=== PATIENT | male | born 1950 | race Caucasian/White ===

== ENCOUNTER 2017-10-07 13:35 | Inpatient (IN) | payer MEDICARE, OTHER ==
[2017-10-07] MEDS ORDERED: MVI, Adult with Vitamin K 10 ML, Chromium/Copper/Mang/Selen/Zn 1 ML in Lactated Ringers... IV ONE ×3 (15:30)
[2017-10-07] MEDS ORDERED: Naloxone 0.4 MG/ML SDV IV PRN (15:39)
[2017-10-07] MEDS ORDERED: HYDROmorphone/Normal Saline 15 MG/30 ML PCA IV PRN (15:39)
[2017-10-07] MEDS: Pantoprazole 40 MG Vial IVPUSH SCH (17:17)
[2017-10-07] MEDS: Dextrose 5%-Lactated Ringers 1,000 ML IV SCH (18:38)
[2017-10-08] MEDS: Pantoprazole 40 MG Vial IVPUSH SCH ×2 (03:16→16:14)
[2017-10-08] MEDS: Dextrose 5%-Lactated Ringers 1,000 ML IV SCH ×3 (04:53→22:15)
--- NOTE | 2017-10-08 07:32 | PCM.PN ---
- General Info Date of Service: 10/08/17 Admission Dx/Problem (Free Text): Direct admit for abdominal pain from prior gastric band. Subjective Update: Patient was admitted last night for abdominal pain. His pain is currently controlled and he is up and ambulating. Patient wants the band removed however does is hesitant for conversation to a LRNYGB. Functional Status: Reports: Pain Controlled - Review of Systems General: Reports: No Symptoms HEENT: Reports: No Symptoms Pulmonary: Reports: No Symptoms Cardiovascular: Reports: No Symptoms Gastrointestinal: Reports: No Symptoms Genitourinary: Reports: No Symptoms Musculoskeletal: Reports: No Symptoms Skin: Reports: No Symptoms Neurological: Reports: No Symptoms Psychiatric: Reports: No Symptoms (ROS is negative for any pertient positives or negatives. ) - Patient Data Vitals - Most Recent: Last Vital Signs Temp 96.2 F 10/08/17 03:14 Pulse 57 L 10/08/17 03:14 Resp 18 10/08/17 03:14 BP 116/52 L 10/08/17 03:14 Pulse Ox 98 10/08/17 03:14 Weight - Most Recent: 311 lb I&O - Last 24 Hours: Intake & Output 10/07/17 10/08/17 10/08/17 22:59 06:59 14:59 Intake Total 1055 1046 Output Total 125 Balance 1055 921 Lab Results Last 24 Hours: Laboratory Results - last 24 hr 10/08/17 10/08/17 10/08/17 Range/Units 03:45 03:45 03:45 WBC 3.3 L (4.5-11.0) K/uL RBC 4.18 L (4.30-5.90) M/uL Hgb 12.7 (12.0-15.0) g/dL Hct 37.8 L (40.0-54.0) % MCV 90 (80-98) fL MCH 30 (27-31) pg MCHC 34 (32-36) % Plt Count 110 L (150-400) K/uL Sodium 140 (140-148) mmol/L Potassium 3.9 (3.6-5.2) mmol/L Chloride 106 (100-108) mmol/L Carbon Dioxide 30 (21-32) mmol/L Anion Gap 4.5 L (5.0-14.0) mmol/L BUN 10 (7-18) mg/dL Creatinine 1.1 (0.8-1.3) mg/dL Est Cr Clr Drug Dosing 73.48 mL/min Estimated GFR (MDRD) > 60 (>60) Glucose 102 (74-106) mg/dL Calcium 7.8 L (8.5-10.1) mg/dL Phosphorus 3.9 (2.5-4.9) mg/dL Magnesium 1.9 (1.8-2.4) mg/dL Ferritin 201 (8-388) ng/ml Total Bilirubin 1.3 H (0.2-1.0) mg/dL AST 24 (15-37) U/L ALT 36 (12-78) U/L Alkaline Phosphatase 56 (46-116) U/L NT-Pro-B Natriuret Pep 63 (5-125) pg/mL Total Protein 5.8 L (6.4-8.2) g/dL Albumin 3.1 L (3.4-5.0) g/dL Globulin 2.7 (2.3-3.5) g/dL Albumin/Globulin Ratio 1.2 (1.2-2.2) Vitamin B12 422 (193-986) pg/ml Folate 9.4 (8.6-58.9) ng/ml Blood Type O POSITIVE Gel Antibody Screen Negative Med Orders - Current: Current Medications Glycopyrrolate (Glycopyrrolate) 0.4 mg IVPUSH ONCALL ONE Stop: 10/08/17 08:01 Hydromorphone HCl (Dilaudid Senior Merchandiser 15 Mg In Ns 30 Ml) 0 mg IV ASDIRECTED PRN; Protocol PRN 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 Last Admin: 10/07/17 17:14 Dose: 15 mg Dextrose/Lactated Ringer's (Dextrose 5%-Lactated Ringers) 1,000 mls @ 100 mls/ hr IV ASDIRECTED [facility] Last Admin: 10/08/17 04:53 Dose: 100 mls/hr Naloxone HCl (Narcan) 0.1 mg IV ASDIRECTED PRN PRN Reason: decreased respiratory rate Pantoprazole Sodium (Protonix Iv) 40 mg IVPUSH Q12H [facility] Last Admin: 10/08/17 03:16 Dose: 40 mg Discontinued Medications Multivitamins/Minerals 10 ml/Chromium/Copper/Manganese/Seleni/Zn 1 ml/ Lactated Ringer's 1,011 mls @ 337 mls/hr IV ONETIME ONE Stop: 10/07/17 18:29 Last Admin: 10/07/17 15:27 Dose: 337 mls/hr - Exam General: Alert, Oriented, Cooperative, No Acute Distress HEENT: Pupils Equal, Mucous Membr. Moist/[place] Neck: Supple Lungs: Normal Respiratory Effort Cardiovascular: Regular Rate, Regular Rhythm Extremities: Normal Range of Motion Skin: Warm, Dry, Intact Neurological: No New Focal Deficit Psy/Mental Status: Alert, Normal Affect, Normal Mood - Problem List Review Problem List Initiated/Reviewed/Updated: Yes - Assessment Assessment:: Abdominal Pain - Plan Plan:: 1. Scope this am 2. Removal on 10/10/2017 3. Consult with dietitian/social sciences chair for possible switch to LRNYGB 3. Revaluate prn or in am
[2017-10-08] MEDS ORDERED: fentaNYL 100 MCG/2 ML SDV ONE (07:47)
[2017-10-08] MEDS ORDERED: Midazolam 1 MG/ML 2 ML SDV ONE (07:47)
[2017-10-08] MEDS ORDERED: Propofol 200 MG/20 ML SDV ONE (07:47)
[2017-10-08] MEDS ORDERED: Glycopyrrolate 0.2 MG/ML 2 ML SDV IVPUSH ONE (08:00)
[2017-10-08] MEDS: Alum Hydrox/Mag Hydrox/Simeth 360 ML, Lidocaine 2% 60 ML PO PRN ×4 (12:45→16:48)
[2017-10-08] MEDS: Gabapentin 300 MG Cap PO SCH ×2 (12:46→20:53)
[2017-10-08] MEDS: DIMETHYL FUMARATE 240 MG PO SCH ×2 (12:47→20:53)
[2017-10-09] MEDS: Pantoprazole 40 MG Vial IVPUSH SCH ×2 (03:00→17:26)
[2017-10-09] MEDS ORDERED: HYDROmorphone 1 MG/ML Syringe IVPUSH PRN (07:56)
[2017-10-09] MEDS: Dextrose 5%-Lactated Ringers 1,000 ML IV SCH ×2 (08:22→19:22)
--- NOTE | 2017-10-09 08:39 | PCM.PN ---
- General Info Date of Service: 10/09/17 Admission Dx/Problem (Free Text): Direct admit for abdominal pain from prior gastric band. Subjective Update: His pain is currently controlled and he is up and ambulating. Patient wants the band removed however after discussion with the nurses and other faculty he does not want the conversion to a RNYGB. He did has slight wheezing throughout the peripheral lung khan, but states this is something he has always experienced and has never had a problem with surgery in the past. Discussed that surgery will be schedule for tomorrow 10/11/2015 in the mid morning. Functional Status: Reports: Pain Controlled, Tolerating Diet, Ambulating, Urinating - Review of Systems General: Reports: No Symptoms HEENT: Reports: No Symptoms Pulmonary: Reports: No Symptoms Cardiovascular: Reports: No Symptoms Gastrointestinal: Reports: No Symptoms Genitourinary: Reports: No Symptoms Musculoskeletal: Reports: No Symptoms Skin: Reports: No Symptoms Neurological: Reports: No Symptoms Psychiatric: Reports: No Symptoms Systems Review Comment:: Remainder of ROS is negative for any pertinent positives or negatives. - Patient Data Vitals - Most Recent: Last Vital Signs Temp 97.5 F 10/09/17 08:27 Pulse 56 L 10/09/17 08:27 Resp 16 10/09/17 08:27 BP 144/71 H 10/09/17 08:27 Pulse Ox 98 10/09/17 08:27 Weight - Most Recent: 311 lb I&O - Last 24 Hours: Intake & Output 10/08/17 10/09/17 10/09/17 22:59 06:59 14:59 Intake Total 1527 1496 Output Total 650 800 Balance 877 696 Med Orders - Current: Current Medications Albuterol/Ipratropium (Duoneb 3.0-0.5 Mg/3 Ml) 3 ml NEB QIDRT MOUNA Al Hydroxide/Mg Hydroxide 360 (ml/ Lidocaine HCl 60 ml) 0 ml PO TIDAC PRN PRN Reason: FOR MOUTH PAIN Last Admin: 10/08/17 16:48 Dose: 2 ml Gabapentin (Neurontin) 300 mg PO BID [facility] Last Admin: 10/08/17 20:53 Dose: 300 mg Hydromorphone HCl (Dilaudid) 1 mg IVPUSH Q2H PRN PRN Reason: Pain Dextrose/Lactated Ringer's (Dextrose 5%-Lactated Ringers) 1,000 mls @ 100 mls/ hr IV ASDIRECTED [facility] Last Admin: 10/09/17 08:22 Dose: 100 mls/hr Cefoxitin Sodium 2 gm/ Sodium (Chloride) 50 mls @ 100 mls/hr IV ONETIME ONE Stop: 10/10/17 11:24 Dimethyl Fumarate Ec (240mgPom*) 1 each PO BID [facility] Last Admin: 10/08/17 20:53 Dose: 1 each Pantoprazole Sodium (Protonix Iv) 40 mg IVPUSH Q12H [facility] Last Admin: 10/09/17 03:00 Dose: 40 mg Discontinued Medications Fentanyl (Sublimaze) Confirm Administered Dose 100 mcg .ROUTE .STK-MED ONE Stop: 10/08/17 07:48 Glycopyrrolate (Glycopyrrolate) 0.4 mg IVPUSH ONCALL ONE Stop: 10/08/17 08:01 Last Admin: 10/08/17 11:40 Dose: Not Given Hydromorphone HCl (Dilaudid Linux System Administrator 15 Mg In Ns 30 Ml) 0 mg IV ASDIRECTED PRN; Protocol PRN Reason: 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 PAIN CONTROL Last Admin: 10/07/17 17:14 Dose: 15 mg Multivitamins/Minerals 10 ml/Chromium/Copper/Manganese/Seleni/Zn 1 ml/ Lactated Ringer's 1,011 mls @ 337 mls/hr IV ONETIME ONE Stop: 10/07/17 18:29 Last Admin: 10/07/17 15:27 Dose: 337 mls/hr Midazolam HCl (Versed 1 Mg/Ml) Confirm Administered Dose 2 mg .ROUTE .STK-MED ONE Stop: 10/08/17 07:48 Naloxone HCl (Narcan) 0.1 mg IV ASDIRECTED PRN PRN Reason: decreased respiratory rate Propofol (Diprivan 20 Ml) Confirm Administered Dose 200 mg .ROUTE .STK-MED ONE Stop: 10/08/17 07:48 - Exam General: Alert, Oriented, Cooperative, No Acute Distress HEENT: Pupils Equal, Mucous Membr. Moist/[place] Neck: Supple Lungs: Normal Respiratory Effort, Wheezing (Extensive wheezing in upper lobes.) Cardiovascular: Regular Rate, Regular Rhythm Extremities: Normal Range of Motion Skin: Warm, Dry, Intact Neurological: No New Focal Deficit Psy/Mental Status: Alert, Normal Affect, Normal Mood - Problem List Review Problem List Initiated/Reviewed/Updated: Yes - Assessment Assessment:: Abdominal pain from prior gastric band placement - Plan Plan:: 1. Verify patient consent 2. Start incentive spirometry 10 times every hour while awake 3. Start RT Aerosol Therapy 4. Start Albuterol/Ipatropium 3ml KASSIDY QIDRT 5. Hydromorphone 1mg IVPUSH Q2H PRN for pain 6. Cefoxitin 2gm IV one time 7. Continue protonics for gastritis 8. Removal of gastric band scheduled for 10/10/2017 9. Revaluate prn or in am
[2017-10-09] MEDS: DIMETHYL FUMARATE 240 MG PO SCH ×2 (10:04→21:44)
[2017-10-09] MEDS: Gabapentin 300 MG Cap PO SCH ×2 (10:05→21:44)
[2017-10-09] MEDS: Albuterol/Ipratropium 3.0-0.5 MG/3 ML Neb Soln NEB SCH ×3 (10:49→21:45)
[2017-10-10] MEDS: Pantoprazole 40 MG Vial IVPUSH SCH ×2 (04:58→16:46)
[2017-10-10] MEDS ORDERED: Bupivacaine 0.5%/EPINEPHrine 1:200,000 50 ML MDV ONE (07:02)
[2017-10-10] MEDS: Albuterol/Ipratropium 3.0-0.5 MG/3 ML Neb Soln NEB SCH ×5 (07:19→21:32)
[2017-10-10] MEDS: DIMETHYL FUMARATE 240 MG PO SCH ×2 (08:05→21:30)
--- NOTE | 2017-10-10 08:43 | PN ---
DATE OF SERVICE: 10/10/2017 SUBJECTIVE: Mitchell has been n.p.o. since midnight. He will be having removal of his laparoscopic band system, which is medically necessary due to gastric lap band causing near erosion in the esophagus. Mitchell has been symptomatic for the past 72 hours, and the pain has been increasing. REVIEW OF SYSTEMS: Remainder of review of systems including lung status, he is no longer wheezing. DuoNebs have helped with reflux associated with. The problematic gastric band system would attribute to some gastric fluid aspiration, which could attribute to his wheezing and lung condition. Remainder of review of systems negative for any pertinent other positives and negatives. OBJECTIVE: GENERAL: Mitchell Alvarado is a 67-year-old male. He is sitting up in the exam chair. His is here today. VITAL SIGNS: TPR is 96.3, 52, 16, and blood pressure 131/61. HEENT: Negative. NECK: Supple. HEART: Regular rate and rhythm. LUNGS: Exhibit less wheezing. He is getting the DuoNebs on a regular basis. He is experiencing less shortness of breath using his IS. ABDOMEN: Lap band port palpated. Abdomen reveals tenderness in the midepigastric area, otherwise tender. EXTREMITIES: Trace peripheral edema. ASSESSMENT: 1. Intolerance to laparoscopic gastric band. 2. Gastroesophageal reflux disease secondary to gastric laparoscopic band, causing aspiration with wheezing. 3. Morbid obesity, BMI 42. PLAN: 1. Remain n.p.o. for scheduled procedure. 2. Orders to be written postoperatively. Anahi Alvarado PA-C /[id number]
[2017-10-10] MEDS ORDERED: Succinylcholine 200 MG/10 ML MDV ONE (09:56)
[2017-10-10] MEDS ORDERED: Ondansetron 4 MG/2 ML SDV ONE (09:56)
[2017-10-10] MEDS ORDERED: Propofol 200 MG/20 ML SDV ONE (09:56)
[2017-10-10] MEDS ORDERED: Glycopyrrolate 0.2 MG/ML 5 ML MDV ONE (09:56)
[2017-10-10] MEDS ORDERED: Dexamethasone 4 MG/ML SDV ONE (09:56)
[2017-10-10] MEDS ORDERED: Neostigmine Methylsulfate 1 MG/ML 5 ML Syringe ONE (09:56)
[2017-10-10] MEDS ORDERED: Rocuronium 50 MG/5 ML Vial ONE ×2 (09:56→13:06)
[2017-10-10] MEDS ORDERED: fentaNYL 250 MCG/5 ML SDV ONE ×2 (10:17→13:41)
[2017-10-10] MEDS ORDERED: cefOXitin 2 GM in Sodium Chloride 0.9% 50 ML IV ONE (10:55)
[2017-10-10] MEDS ORDERED: Lactated Ringers 1,000 ML ONE (12:37)
[2017-10-10] MEDS ORDERED: Ketamine 500 MG/5 ML MDV IV SCH (13:00)
[2017-10-10] MEDS ORDERED: Ropivacaine 60 ML, Dexamethasone 8 MG, EPINEPHrine 0.4 MG, Sodium Chloride 0.9% 17.6 ML NERVRT SCH ×4 (13:00)
[2017-10-10] MEDS ORDERED: Lidocaine 2% 100 MG/5 ML Syringe IVPUSH ONE (13:00)
[2017-10-10] MEDS ORDERED: Labetalol 20 MG/4 ML Syringe ONE (14:33)
[2017-10-10] MEDS: Gabapentin 300 MG Cap PO SCH ×2 (15:28→21:30)
[2017-10-10] MEDS ORDERED: Dextrose 5%-Lactated Ringers 1,000 ML IV SCH (16:15)
[2017-10-10] MEDS ORDERED: Albuterol/Ipratropium 3.0-0.5 MG/3 ML Neb Soln INH PRN (17:00)
[2017-10-10] MEDS ORDERED: Metoclopramide 10 MG/2 ML SDV IVPUSH PRN (17:00)
[2017-10-10] MEDS ORDERED: Naloxone 0.4 MG/ML SDV IV PRN (17:00)
[2017-10-10] MEDS ORDERED: hydrOXYzine HCl 100 MG/2 ML SDV IM PRN (17:00)
[2017-10-10] MEDS ORDERED: Ondansetron 4 MG/2 ML SDV IVPUSH PRN (17:00)
[2017-10-10] MEDS ORDERED: diphenhydrAMINE 50 MG/ML SDV IVPUSH PRN (17:00)
[2017-10-10] MEDS ORDERED: Labetalol 20 MG/4 ML Syringe IVPUSH PRN (17:00)
[2017-10-10] MEDS ORDERED: HYDROmorphone/Normal Saline 15 MG/30 ML PCA IV PRN (17:00)
[2017-10-10] MEDS: cefOXitin 2 GM in Sodium Chloride 0.9% 50 ML IV SCH ×2 (18:00→23:54)
[2017-10-10] MEDS ORDERED: MVI, Adult with Vitamin K 10 ML, Thiamine 100 MG, Chromium/Copper/Mang/Selen/Zn 1 ML in... IV SCH ×4 (18:00)
[2017-10-10] MEDS: Heparin Sodium 5,000 Units/ML Vial SUBCUT SCH (18:10)
[2017-10-10] MEDS: Acetaminophen Soln 650 MG/20.3 ML UD Cup PO SCH ×2 (18:10→23:54)
[2017-10-11] MEDS: Heparin Sodium 5,000 Units/ML Vial SUBCUT SCH (01:26)
[2017-10-11] MEDS: Acetaminophen Soln 650 MG/20.3 ML UD Cup PO SCH (05:31)
[2017-10-11] MEDS: cefOXitin 2 GM in Sodium Chloride 0.9% 50 ML IV SCH (05:32)
[2017-10-11] MEDS: Albuterol/Ipratropium 3.0-0.5 MG/3 ML Neb Soln NEB SCH (07:19)
[2017-10-11] MEDS ORDERED: Pantoprazole 40 MG Vial IVPUSH SCH (07:30)
[2017-10-11] MEDS ORDERED: Acetaminophen/HYDROcodone 325-5 MG Tab PO PRN (07:40)
[2017-10-11] MEDS ORDERED: Pantoprazole 40 MG Tab.CR PO SCH (07:42)
[2017-10-11] MEDS: DIMETHYL FUMARATE 240 MG PO SCH (08:07)
[2017-10-11] MEDS: Gabapentin 300 MG Cap PO SCH (08:07)
--- NOTE | 2017-10-11 11:45 | DISCH ---
ADMISSION DIAGNOSES: 1. Placement of laparoscopic adjustable gastric Realize band on 08/20/2008. 2. Intolerance to gastric lap band. 3. Morbid obesity. 4. Multiple sclerosis. 5. Restless legs syndrome. 6. Depression. 7. Benign prostatic hyperplasia. 8. Erectile dysfunction. 9. Hyperlipidemia. 10.Neuromuscular dysfunction of bladder. 11.Peripheral vascular disease. 12.Sensorineural hearing loss. DISCHARGE DIAGNOSES: Diagnostic laparoscopy with lysis of adhesions, removal of laparoscopic gastric band system, partial gastrectomy, and repair of paraesophageal diaphragmatic hernia for intolerance to lap band system (Realize band), deserosalized small bowel, status post takedown of laparoscopic gastric band and paraesophageal diaphragmatic hernia. Date of surgery is 10/10/2017. HISTORY: Mitchell Alvarado is a 67-year-old male who has had a laparoscopic gastric band system in since 2008. He recently had difficulty with intolerance to the band causing extreme nausea, vomiting, and pain. After preoperative evaluation and discussion of possible risks and possible complications, he wished to proceed with surgical procedure. HOSPITAL COURSE: Mitchell was transferred from [place], [place], and was admitted to Dr. Pankaj Sampson's surgical service. He had an EGD on 10/08/2017 to evaluate lap band status. After preoperative evaluation and discussion of possible risks and possible complications, he wished to have the lap band removed. His surgical procedure was on 10/10/2017. He had no operative complications and was able to be discharged on postop day #1. Throughout his hospitalization, he did have decreased lung sounds and wheezing. He was started on DuoNeb. This was thought to be secondary to aspiration from the gastric lap band system. PHYSICAL EXAMINATION: GENERAL: Mitchell Alvarado is a 67-year-old male. Alert and orientated. VITAL SIGNS: Height is 6 feet. Weight is 311 pounds. TPR is 97.6, 51, 18, and blood pressure 134/69. HEENT: Negative. NECK: Supple. HEART: Regular rate and rhythm. LUNGS: Clear. ABDOMEN: Incision looks good. Abdominal binder is on. EXTREMITIES: Without peripheral edema. DISPOSITION: Discharged home. CONDITION: Stable and improving. FOLLOWUP: With Anahi Alvarado PA-C, on 10/21/2017, at 10 a.m. If he is unable to come back to [place] for followup appointment, he is to see his primary care provider for suture removal and postop follow up on 10/21/2017. DISCHARGE MEDICATIONS: Home prescription; 1. Micro 5/325 mg 1 to 2 tabs q.4 hours p.r.n. pain, #30. 2. Protonix 40 mg at bedtime, #60, with one refill. 3. Tylenol 650 mg oral q.6 hours p.r.n. pain. He is to resume his home medications of; 1. Tecfidera, dimethyl fumarate, 240 mg oral twice daily. 2. Neurontin 300 mg oral twice daily. DISCHARGE DIET: Full liquid diet for 2 weeks. Drink 8 to 10 glasses of water a day. ACTIVITY: No lifting greater than 10 pounds for 2 weeks. Walk 6 times daily, distance and time as tolerated. Driving, do not drive while on narcotic pain medication and for one week. Shower/bathing, may shower. DISCHARGE INSTRUCTIONS: Notify provider if any fever, increased pain, swelling, redness, nausea, or vomiting. Keep site clean and dry. Wear abdominal binder for 2 weeks and then as tolerated. Use incentive spirometer 10 times every hour while awake for one week.
[2017-10-12] MEDS ORDERED: Cyanocobalamin (Vitamin B12) 1,000 MCG/ML SDV IM ONE (09:00)
--- NOTE | 2017-10-15 09:05 | OR ---
DATE OF PROCEDURE: 10/08/2017 PREOPERATIVE DIAGNOSIS: Severe epigastric pain and reflux symptoms, status post previous laparoscopic adjustable gastric band placement. POSTOPERATIVE DIAGNOSES: 1. Marked ulceration and inflammation gastric pouch and distal esophagus associated with laparoscopic adjustable gastric band. 2. Generalized esophageal dilation. PROCEDURE: Esophagogastroduodenoscopy with antral biopsies for CLOtest. ANESTHESIA: IV sedation. INDICATION FOR PROCEDURE: This is a 67-year-old male presenting with worsening epigastric pain. At this point, when he eats pretty much anything, he has quite severe pain, and he was admitted for evaluation. The patient is status post gastric band placement and has had worsening reflux symptoms for some time. Plan is to proceed with upper GI endoscopy with biopsies as indicated. Potential risks including bleeding and perforation were discussed, and the patient wishes to proceed. DETAILS OF PROCEDURE: The patient was taken to the operating room and placed in a left lateral decubitus position. IV sedation was administered, after which the upper GI endoscope was passed orally through the length of esophagus, into stomach with retroflexion view of the fundus, and thereafter through the pyloric channel and into the junction of the third and fourth portions of the duodenum. Findings included normal hypopharynx, larynx, and upper esophageal sphincter. As one entered the esophagus, the patient was noted to have a fairly striking diffuse esophageal dilation. There was a small amount of retained fluid and food within the distal esophagus. As one approached the distal esophagus and into the pouch above the imprint of the band in the stomach, there was severe ulceration and inflammation present diffusely. This was likely related to ongoing reflux, as well as probably some intermittent episodes of retained food in that area. The area where the stomach was imprinted by the band, however, was widely open, so there was no mechanical obstruction per se. The remainder of the gastric and duodenal exams were unremarkable. Biopsies were obtained from the gastric antrum and were sent to establish the patient's current H. pylori status. Minimal bleeding from the biopsy site was seen and the procedure then concluded. The patient will definitely need to have the band removed. Optimally, he would have this converted to Jeff-en-Y gastric bypass, and that issue will be discussed further with the patient and family in the postprocedure phase. Pankaj Sampson MD /[id number]
--- NOTE | 2017-10-15 10:32 | OR ---
DATE OF PROCEDURE: 10/10/2017 PREOPERATIVE DIAGNOSES: Intolerance of laparoscopic adjustable gastric band system with severe gastroesophageal reflux disease and intermittent pulmonary aspiration of esophageal contents. POSTOPERATIVE DIAGNOSES: 1. Intolerance of laparoscopic adjustable gastric band system with severe gastroesophageal reflux disease and intermittent pulmonary aspiration of esophageal contents. 2. Area of deserosalized stomach status post takedown of laparoscopic adjustable gastric band. 3. Paraesophageal diaphragmatic hernia. OPERATIVE PROCEDURES: Diagnostic laparoscopy with lysis of adhesions and: 1. Removal of laparoscopic adjustable gastric band system (38939). 2. Partial gastrectomy (10612). 3. Repair of paraesophageal diaphragmatic hernia (49908). ANESTHESIA: General. ASSISTANTS: Anahi Alvarado PA-C, and CLARISSA Gonzalez. INDICATION FOR PROCEDURE: This is a 67-year-old status post previous laparoscopic adjustable gastric band placement, presenting with severe reflux. Upper endoscopy done earlier showed dilated esophagus with some retained food and fluid and severe inflammation of the distal esophagus and pouch above the level of the imprint of the band. The patient also reports episodes of likely pulmonary aspiration of the esophageal contents. All this makes removal of this band at this time quite urgent. The patient was offered a conversion to a Jeff-en-Y gastric bypass, but declined at this time. Plan is to proceed with removal of the band system. Potential risks including bleeding, infection, injury to underlying viscera, as well as possibility of cardiopulmonary, septic, or hemorrhagic complications leading to were discussed, and the patient wishes to proceed. He is aware that without concurrent gastric bypass, he will likely have substantial weight regain. DETAILS OF PROCEDURE: The patient was taken to the operating room and placed in a supine position. After general endotracheal anesthesia was induced, he was converted to a lithotomy position and the abdomen was prepped and draped. At 15 cm inferior, 5 cm left of xiphoid process, a transverse incision was made. The peritoneal cavity entered under direct vision with an Optiview trocar inflated to 15 mmHg pressure with CO2. The laparoscope was reinserted. No underlying trocar insertion site injuries were seen. Following this, then bilateral subcostal transversus abdominis plane blocks were placed with direct visualization of the needle tip in the correct location and injection of the standard solution bilaterally. Five additional trocars were then placed across the upper and mid abdomen. The liver was then retracted anteriorly, some of the adhesions between the band system and the liver were taken down, and at that point, the attachments of the band were taken down with electrocautery. Once enough band was exposed, it was sharply divided and pulled out of its capsule encircling the stomach. The port tubing was then cut in its midportion and the band was then disconnected, 2 components of that band were then removed through the left lateral trocar site, and inspection of the area of the takedown of the band showed a ridge of stomach, which was at this point quite cauterized and deserosalized. Given this, this was resected using 2 firings of the [place] black loads. The patient on workup was noted to have a diaphragmatic hernia, and the patient did appear to have a paraesophageal diaphragmatic hernia with prolapse of some of the previously placed gastric fundus and a tongue of omentum in a plane anterior to the course of the esophagus. These were reduced and the dissection began posteriorly and the posterior crural repair was accomplished with 0 Ethibond sutures, reinforced with PTFE pledgets and 1 additional anterior stitch was then placed to create a closure of the crura on both sides, this also with 0 Ethibond suture reinforced with pledgets. At that point, no further problems were noted. The abdomen was irrigated with antibiotic-containing saline solution and the trocars removed. The peritoneal cavity was deflated. The incisions were closed with 4-0 Vicryl skin stitch and the drains affixed with some 3-0 Vicryl stitch. The 12 and 15 mm trocar sites had also been closed at the fascial level with 0 Vicryl stitch. The patient was taken to the recovery room in satisfactory condition. Physician assistant secretary, Anahi Alvarado played an essential role in assisting in this case, helping to position the patient, retract structures as needed, as well as suturing and cutting sutures when indicated. Her presence improved patient safety and decreased the operative time. Pankaj Sampson MD /[id number]
== END 2017-10-11 09:30 | disposition home or self-care (01) | DRG 327 ==
LOC: JP.MS 13:35
PROVIDERS: ADMIT Surgery; ATTEND Surgery
PROC: 0DB78ZX Excision of Stomach, Pylorus, Via Natural or Artificial Opening Endoscopic, Diagnostic (ICD-10-PCS; 2017-10-08)
PROC: 0DP64YZ Removal of Other Device from Stomach, Percutaneous Endoscopic Approach (ICD-10-PCS; principal; 2017-10-10)
PROC: 0BQT4ZZ Repair Diaphragm, Percutaneous Endoscopic Approach (ICD-10-PCS; 2017-10-10)
PROC: 0DB64ZZ Excision of Stomach, Percutaneous Endoscopic Approach (ICD-10-PCS; 2017-10-10)
PROC: 3E0T3BZ Introduction of Anesthetic Agent into Peripheral Nerves and Plexi, Percutaneous Approach (ICD-10-PCS; 2017-10-10)
DX: K95.09 Other complications of gastric band procedure (principal); Z68.41 Body mass index [BMI] 40.0-44.9, adult; K22.10 Ulcer of esophagus without bleeding; Y83.8 Other surgical procedures as the cause of abnormal reaction of the patient, or of later complication, without mention of misadventure at the time of the procedure; Y92.009 Unspecified place in unspecified non-institutional (private) residence as the place of occurrence of the external cause; E66.01 Morbid (severe) obesity due to excess calories; K21.9 Gastro-esophageal reflux disease without esophagitis; K44.9 Diaphragmatic hernia without obstruction or gangrene; G25.81 Restless legs syndrome; F32.9 Major depressive disorder, single episode, unspecified; N40.0 Benign prostatic hyperplasia without lower urinary tract symptoms; E78.5 Hyperlipidemia, unspecified; I73.9 Peripheral vascular disease, unspecified; H90.5 Unspecified sensorineural hearing loss; N31.9 Neuromuscular dysfunction of bladder, unspecified; K22.8 Other specified diseases of esophagus
CPT/HCPCS: 36415; 80053; 82607; 82728; 82746; 83735; 83880; 84100; 85027; 86850; 86900; 86901; 87081; 88300; 88305; 94640; 94762; A9270-GY; C9113; J0171; J0330; J0694; J1100; J1170; J1644; J2250; J2405; J2704; J2710; J2795; J3010; J3411; J7042; J7050; J7120; J7620